=== PATIENT | female | born 1930 | race African-American/Black ===

== ENCOUNTER 2019-01-03 20:09 | Inpatient (IN) | payer MEDICARE, MEDICAID ==
[~2019-01-03] VITALS: Ht 152.4 cm; Wt 42.6 kg
[2019-01-03] MEDS ORDERED: LIDOCAINE HCL 1% 20ML VIAL (Pyxis) INJ INFIL ONE (22:15)
[2019-01-03 23:02] LABS: BASOPHILS % 0.5 % (0.0-2.0); EOSINOPHILS % 3.2 % (0.0-5.0); HEMATOCRIT. 34.1 % (36.0-48.0); HEMOGLOBIN. 11.6 g/dL (12.0-16.0); LYMPHOCYTES % 15.7 % (20.0-50.0); MEAN PLATELET VOLUME 6.8 fl (7.4-10.4); MONOCYTES % 4.3 % (2.0-8.0); NEUTROPHILS % 76.3 % (40.0-76.0); PLATELET 317 x1000/uL (130-400); RED BLOOD CELL COUNT 3.52 mill/uL (4.2-5.4); RED CELL DISTRIBUTION WIDTH 15.9 % (11.6-14.6)
[2019-01-03 23:15] LABS: CHLORIDE 107 mEq/L (98-107)
[2019-01-04 00:22] LABS: CLARITY URINE CLEAR (CLEAR); COLOR URINE AMBER (YELLOW); KETONES URINE TRACE (NEGATIVE); LEUKOCYTE ESTERASE URINE NEGATIVE (NEGATIVE); NITRITE URINE NEGATIVE (NEGATIVE); OCCULT BLOOD URINE NEGATIVE (NEGATIVE); PROTEIN URINE TRACE (NEGATIVE); SPECIFIC GRAVITY URINE 1.035 (1.005-1.030); UROBILINOGEN URINE 0.2 E.U./dL (0.2-1.0)
[2019-01-04] MEDS ORDERED: HYDROCODONE/ACETAMINOPHEN 5/325MG TABLET PO ONE (00:45)
[2019-01-04] MEDS ORDERED: KETOROLAC 15MG/ML VIAL IV ONE (01:00)
[2019-01-04] MEDS ORDERED: FUROSEMIDE 20MG/2ML VIAL IVP SCH (02:00)
[2019-01-04] MEDS ORDERED: POTASSIUM CHLORIDE 20MEQ TABLET SR PO ONE (05:15)
[2019-01-04 05:30] VITALS: BP 152/73
[2019-01-04 06:14] VITALS: BP 152/73
[2019-01-04 08:00] VITALS: BP 150/72
[2019-01-04] MEDS ORDERED: DOCU-266 MT (10:29)
[2019-01-04] MEDS ORDERED: COR6 MT (10:29)
[2019-01-04] MEDS ORDERED: LISI-652 PO (10:29)
[2019-01-04] MEDS ORDERED: ATOR10TA PO (10:29)
[2019-01-04] MEDS ORDERED: FOLI-43 MT (10:29)
[2019-01-04] MEDS ORDERED: ASPI-1159 PO (10:29)
[2019-01-04 11:46] VITALS: BP 143/53
[2019-01-04] MEDS: ASPIRIN 81MG EC TABLET PO SCH (11:51)
[2019-01-04] MEDS: CARVEDILOL 6.25 MG TABLET PO SCH ×2 (11:51→21:56)
[2019-01-04 16:00] VITALS: BP 124/50
[2019-01-04] MEDS ORDERED: TEMAZEPAM 15MG CAPSULE PO PRN (18:45)
[2019-01-04] MEDS ORDERED: MAGNESIUM HYDROXIDE 400MG/5ML 30ML UDC PO PRN (18:45)
[2019-01-04] MEDS ORDERED: PREDNISONE 20MG TABLET PO NR (18:58)
[2019-01-04] MEDS: CELECOXIB 200MG CAPSULE PO SCH (19:04)
[2019-01-04 20:00] VITALS: BP 153/77
[2019-01-04] MEDS: ATORVASTATIN CALCIUM 10MG TABLET PO SCH (21:55)
[2019-01-04] MEDS: FAMOTIDINE 20MG TABLET PO SCH (21:55)
[2019-01-04] MEDS: LISINOPRIL 10MG TABLET PO SCH (21:57)
[2019-01-05] VITALS (7 sets, daily range): BP systolic 101–158; BP diastolic 50–93
[2019-01-05 08:46] LABS: CHLORIDE 108 mEq/L (98-107)
[2019-01-05] MEDS: CARVEDILOL 6.25 MG TABLET PO SCH ×2 (10:08→21:00)
[2019-01-05] MEDS: ASPIRIN 81MG EC TABLET PO SCH (10:08)
[2019-01-05] MEDS: LISINOPRIL 10MG TABLET PO SCH ×2 (10:08→21:00)
[2019-01-05] MEDS: CELECOXIB 200MG CAPSULE PO SCH (10:08)
[2019-01-05] MEDS: DOCUSATE SODIUM 100MG CAPSULE PO SCH ×2 (10:08→17:21)
[2019-01-05] MEDS: ATORVASTATIN CALCIUM 10MG TABLET PO SCH (21:18)
[2019-01-05] MEDS: FAMOTIDINE 20MG TABLET PO SCH (21:18)
[2019-01-06] VITALS: BP 147/68
[2019-01-06 04:00] VITALS: BP 168/67
[2019-01-06 08:00] VITALS: BP 154/56
[2019-01-06] MEDS: CELECOXIB 200MG CAPSULE PO SCH (10:12)
[2019-01-06] MEDS: ASPIRIN 81MG EC TABLET PO SCH (10:12)
[2019-01-06] MEDS: DOCUSATE SODIUM 100MG CAPSULE PO SCH ×2 (10:13→17:00)
[2019-01-06] MEDS: CARVEDILOL 6.25 MG TABLET PO SCH (10:13)
[2019-01-06] MEDS: LISINOPRIL 10MG TABLET PO SCH (10:13)
[2019-01-06 11:25] LABS: ETHANOL BLOOD < 10 mg/dL
[2019-01-06 11:29] LABS: CREATINE KINASE 40 IU/L (26-192); T4 FREE 1.24 ng/dL (0.76-1.46)
[2019-01-06 11:35] LABS: VITAMIN B12 SERUM 465 pg/mL (211-911)
[2019-01-06 11:51] LABS: FOLIC ACID (FOLATE) SERUM > 20.00 ng/mL (>5.38)
[2019-01-06 12:00] VITALS: BP 116/54
[2019-01-06 19:21] VITALS: BP 135/67
== END 2019-01-06 21:46 | DRG 91 ==
LOC: ER 20:09 → 7WST 01-04 02:04 → EDBEDREQ 01-04 02:07 → EDBEDREQTM 01-04 02:07 → ENRESERV 01-04 03:52
PROVIDERS: ADMIT Internal Medicine; ATTEND Internal Medicine
DX: G92 Toxic encephalopathy (principal); G82.50 Quadriplegia, unspecified; E43 Unspecified severe protein-calorie malnutrition; Z68.1 Body mass index [BMI] 19.9 or less, adult; N39.0 Urinary tract infection, site not specified; I11.0 Hypertensive heart disease with heart failure; R62.7 Adult failure to thrive; I50.9 Heart failure, unspecified; I25.10 Atherosclerotic heart disease of native coronary artery without angina pectoris; F03.90 Unspecified dementia, unspecified severity, without behavioral disturbance, psychotic disturbance, mood disturbance, and anxiety; E87.6 Hypokalemia; M19.90 Unspecified osteoarthritis, unspecified site; D64.9 Anemia, unspecified; D72.819 Decreased white blood cell count, unspecified; E78.00 Pure hypercholesterolemia, unspecified; J84.10 Pulmonary fibrosis, unspecified; M48.02 Spinal stenosis, cervical region; M48.061 Spinal stenosis, lumbar region without neurogenic claudication; M85.80 Other specified disorders of bone density and structure, unspecified site; R13.10 Dysphagia, unspecified; I25.2 Old myocardial infarction; Z91.19 Patient's noncompliance with other medical treatment and regimen; Z95.1 Presence of aortocoronary bypass graft; Z79.899 Other long term (current) drug therapy; Z79.82 Long term (current) use of aspirin
CPT/HCPCS: 36415; 71045; 73562; 80048; 80320; 82140; 82550; 82607; 82746; 83036; 83735; 83880; 84439; 84443; 84481; 84484; 85651; 92610; 93005; 93306; 93971; 96374; 96375; 97110; 97162; 97166; 99285; C1893; J1885; J1940; J3490; J7512; A4315; G0480

== ENCOUNTER 2019-02-17 14:59 | Inpatient (IN) | payer MEDICARE, MEDICAID ==
[~2019-02-17] VITALS: Ht 157.5 cm; Wt 40.8 kg
[~2019-02-17 14:59] MED LIST: ASPI-1393 PO; ATOR10TA PO; COR6 MT; DOCU-266 MT; FOLI-43 MT; LISI-652 PO
[2019-02-17] MEDS ORDERED: VANCOMYCIN 1 G PREMIX 200 ML IV ONE (16:30)
[2019-02-17] MEDS ORDERED: PIPERACILLIN/TAZ 3.375G PREMIX 50 ML IV ONE (16:30)
[2019-02-17] MEDS ORDERED: SODIUM CHLORIDE 0.9% 1000ML BAG (SEPSIS BOLUS) IV ONE (16:30)
[2019-02-17 17:02] LABS: BASOPHILS % 0.6 % (0.0-2.0); EOSINOPHILS % 4.1 % (0.0-5.0); HEMATOCRIT. 29.3 % (36.0-48.0); HEMOGLOBIN. 9.8 g/dL (12.0-16.0); LYMPHOCYTES % 20.7 % (20.0-50.0); MEAN CORPUSCULAR HEMOGLOBIN 32.8 pg (28.0-32.0); MEAN CORPUSCULAR VOLUME 98.1 fL (81.0-99.0); MEAN PLATELET VOLUME 6.8 fl (7.4-10.4); NEUTROPHILS % 66.6 % (40.0-76.0); PLATELET 237 x1000/uL (130-400); RED BLOOD CELL COUNT 2.99 mill/uL (4.2-5.4); RED CELL DISTRIBUTION WIDTH 14.3 % (11.6-14.6)
[2019-02-17 17:07] LABS: CHLORIDE 110 mEq/L (98-107); INR 1.1
[2019-02-17] MEDS ORDERED: FUROSEMIDE 20MG/2ML VIAL IVP ONE (17:30)
[2019-02-17] MEDS ORDERED: POTASSIUM CHLORIDE 20MEQ TABLET SR PO ONE (20:15)
[2019-02-17] MEDS ORDERED: CLONIDINE 0.1MG TABLET PO PRN (21:45)
[2019-02-17] MEDS ORDERED: MAGNESIUM/ALUMINUM HYDROXIDE/SIMETHICONE 30ML UDC PO PRN (21:45)
[2019-02-17] MEDS ORDERED: ACETAMINOPHEN 325MG TABLET PO PRN (21:45)
[2019-02-17 23:00] VITALS: BP 99/56
[2019-02-17 23:10] VITALS: BP 114/56
[2019-02-18] VITALS: BP 113/42
[2019-02-18] MEDS ORDERED: KCL 10MEQ/50ML PREMIX 50 ML IV NR (01:00)
[2019-02-18] MEDS: SODIUM CHLORIDE 0.9% 1,000 ML IV SCH ×2 (01:00→10:00)
[2019-02-18] MEDS: ENOXAPARIN 40MG/0.4ML SYR SUBCUT SCH ×2 (01:02→21:22)
[2019-02-18 04:00] VITALS: BP 105/45
[2019-02-18 06:37] LABS: TOTAL IRON BINDING CAPACITY 247 ug/dL (250-450)
[2019-02-18 08:00] VITALS: BP 136/55
[2019-02-18 10:49] LABS: CHLORIDE 111 mEq/L (98-107)
[2019-02-18 11:08] LABS: BASOPHILS % 0.6 % (0.0-2.0); EOSINOPHILS % 2.5 % (0.0-5.0); HEMATOCRIT. 35.4 % (36.0-48.0); HEMOGLOBIN. 11.9 g/dL (12.0-16.0); LYMPHOCYTES % 17.8 % (20.0-50.0); MEAN CORPUSCULAR HEMOGLOBIN 33.1 pg (28.0-32.0); MEAN CORPUSCULAR VOLUME 98.6 fL (81.0-99.0); MEAN PLATELET VOLUME 7.9 fl (7.4-10.4); MONOCYTES % 5.7 % (2.0-8.0); NEUTROPHILS % 73.4 % (40.0-76.0); PLATELET 145 x1000/uL (130-400); RED BLOOD CELL COUNT 3.59 mill/uL (4.2-5.4); RED CELL DISTRIBUTION WIDTH 14.6 % (11.6-14.6)
[2019-02-18 12:00] VITALS: BP 128/64
[2019-02-18 16:00] VITALS: BP 139/59
[2019-02-18 20:00] VITALS: BP 164/74
[2019-02-19] VITALS: BP 100/36
[2019-02-19] MEDS: SODIUM CHLORIDE 0.9% 1,000 ML IV SCH ×2 (00:23→20:14)
[2019-02-19 04:00] VITALS: BP 115/38
[2019-02-19 08:21] VITALS: BP 140/71
[2019-02-19 12:15] LABS: CHLORIDE 111 mEq/L (98-107)
[2019-02-19] MEDS: HYDROCODONE/ACETAMINOPHEN 5/325MG TABLET PO PRN (12:26)
[2019-02-19 12:30] VITALS: BP 100/52
[2019-02-19 16:18] VITALS: BP 107/37
[2019-02-19 17:31] LABS: BASOPHILS % 0.7 % (0.0-2.0); EOSINOPHILS % 4.8 % (0.0-5.0); HEMATOCRIT. 32.9 % (36.0-48.0); HEMOGLOBIN. 10.8 g/dL (12.0-16.0); LYMPHOCYTES % 22.6 % (20.0-50.0); MEAN CORPUSCULAR HEMOGLOBIN 32.8 pg (28.0-32.0); MEAN CORPUSCULAR VOLUME 99.8 fL (81.0-99.0); MEAN PLATELET VOLUME 7.1 fl (7.4-10.4); NEUTROPHILS % 63.9 % (40.0-76.0); PLATELET 217 x1000/uL (130-400); RED CELL DISTRIBUTION WIDTH 14.6 % (11.6-14.6)
[2019-02-19 20:00] VITALS: BP 137/53
[2019-02-19] MEDS: ENOXAPARIN 30MG/0.3ML SYR SUBCUT SCH (20:14)
[2019-02-20] VITALS (7 sets, daily range): BP systolic 118–147; BP diastolic 52–88
[2019-02-20 06:08] LABS: BASOPHILS % 0.6 % (0.0-2.0); EOSINOPHILS % 4.9 % (0.0-5.0); HEMATOCRIT. 32.3 % (36.0-48.0); HEMOGLOBIN. 10.8 g/dL (12.0-16.0); LYMPHOCYTES % 27.9 % (20.0-50.0); MEAN CORPUSCULAR HEMOGLOBIN 33.4 pg (28.0-32.0); MEAN CORPUSCULAR VOLUME 99.4 fL (81.0-99.0); MEAN PLATELET VOLUME 6.8 fl (7.4-10.4); MONOCYTES % 7.4 % (2.0-8.0); NEUTROPHILS % 59.2 % (40.0-76.0); PLATELET 234 x1000/uL (130-400); RED BLOOD CELL COUNT 3.25 mill/uL (4.2-5.4); RED CELL DISTRIBUTION WIDTH 14.3 % (11.6-14.6)
[2019-02-20 06:19] LABS: CHLORIDE 111 mEq/L (98-107)
[2019-02-20] MEDS: SODIUM CHLORIDE 0.9% 1,000 ML IV SCH (15:05)
[2019-02-20] MEDS: ENOXAPARIN 30MG/0.3ML SYR SUBCUT SCH (20:52)
[2019-02-20] MEDS: HYDROCODONE/ACETAMINOPHEN 5/325MG TABLET PO PRN (20:53)
[2019-02-21 00:05] VITALS: BP 148/75
== END 2019-02-21 03:00 | DRG 592 ==
LOC: ER 16:17 → 7WST 18:14 → EDBEDREQ 18:18 → ENRESERV 20:51
PROVIDERS: ADMIT Internal Medicine Nephrology; ATTEND Internal Medicine Nephrology
DX: L89.159 Pressure ulcer of sacral region, unspecified stage (principal); E43 Unspecified severe protein-calorie malnutrition; I50.32 Chronic diastolic (congestive) heart failure; Z68.1 Body mass index [BMI] 19.9 or less, adult; D64.9 Anemia, unspecified; E87.6 Hypokalemia; E87.8 Other disorders of electrolyte and fluid balance, not elsewhere classified; F03.90 Unspecified dementia, unspecified severity, without behavioral disturbance, psychotic disturbance, mood disturbance, and anxiety; I11.0 Hypertensive heart disease with heart failure; I25.10 Atherosclerotic heart disease of native coronary artery without angina pectoris; L89.209 Pressure ulcer of unspecified hip, unspecified stage; Z95.1 Presence of aortocoronary bypass graft; Z79.82 Long term (current) use of aspirin; Z79.899 Other long term (current) drug therapy
CPT/HCPCS: 36415; 71045; 72100; 80048; 82728; 83540; 83550; 83605; 83880; 84145; 84484; 93005; 96365; 96375; 97162; 99285; C1893; J1650; J1940; J2543; J3370; J3480; J7030; A4315